=== PATIENT | male | born 1965 | race Caucasian/White ===

== ENCOUNTER → 2017-06-16 | Outpatient (CLI) | payer OTHER ==
[~2017-06-16] MED LIST: LIDOCAINE 1% 300 MG/30 ML SDV ONE
== END ==
LOC: FIMAGING 07:37
PROVIDERS: ATTEND Orthopaedic Surgery
PROC: 3E023GC Introduction of Other Therapeutic Substance into Muscle, Percutaneous Approach (ICD-10-PCS; principal; 2017-06-16)
PROC: [UNRECOGNIZED PROCEDURE] (principal; 2017-06-16)
DX: M25.521 Pain in right elbow (principal)